=== PATIENT | male | born 1970 | race Caucasian/White ===

== ENCOUNTER 2023-09-15 10:22 | Emergency (ER) | payer OTHER ==
[~2023-09-15] VITALS: Ht 177.8 cm; Wt 86.2 kg
[2023-09-15 13:44] LABS: HEMATOCRIT 44.1 % (39.0-48.0); HEMOGLOBIN 15.3 g/dL (13-16.00); MEAN CELL VOLUME 86.4 fL (80.0-100.00); MEAN CORPUSCULAR HEMOGLOBIN 29.9 pg (27.00-32.0); MEAN CORPUSCULAR HGB CONC 34.6 g/dl (32.0-36.0); PLATELET COUNT 144 K/uL (150-450); RED CELL DISTRIBUTION WIDTH 13.3 % (11.5-14.5)
[2023-09-15 14:12] LABS: CALCIUM 9.4 mg/dL (8.5-10.1); CREATININE SERUM 0.77 mg/dL (0.70-1.30); GFR 106.09; POTASSIUM 3.93 mEq/L (3.5-5.1)
== END 2023-09-15 15:15 | disposition home or self-care (01) ==
LOC: ER 10:23
PROVIDERS: General Practice
DX: R00.2 Palpitations (principal)